=== PATIENT | male | born 1975 | race Two or more races ===

== ENCOUNTER 2022-03-17 23:51 | Emergency (ER) | payer MEDICAID ==
[~2022-03-17] VITALS: Ht 188 cm; Wt 168.3 kg
[2022-03-18 05:19] LABS: Urine Bacteria MANY /hpf (None Seen); Urine Blood 3+ /uL (Negative); Urine Mucus FEW (None Seen); Urine WBC 301 /hpf (0 - 3); Urine WBC Clumps PRESENT /hpf (None Seen)
[2022-03-18] MEDS ORDERED: NITR-87 PO (05:33)
[2022-03-18] MEDS ORDERED: PERCOT PO (05:33)
[2022-03-18 07:51] VITALS: BP 116/76
== END 2022-03-18 09:30 | disposition home or self-care (01) ==
LOC: ER 23:51
DX: N39.0 Urinary tract infection, site not specified (principal)
CPT/HCPCS: 74176; 81001

== ENCOUNTER 2025-07-08 01:51 | Emergency (ER) | payer MEDICAID ==
[~2025-07-08] VITALS: Ht 188 cm; Wt 161.0 kg
[~2025-07-08 01:51] MED LIST: NITR-87 PO; PERCOT PO
[2025-07-08] MEDS: IPRATROPIUM BROM 0.5 MG/2.5ML INH SOL NEB ONE (02:13)
[2025-07-08] MEDS: ALBUTEROL SULF 2.5 MG/0.5ML(0.5%) NEB SOLN NEB ONE (02:13)
[2025-07-08 03:34] VITALS: BP 147/81; PULSE 96; RESP 19; TEMP 98.6; O2SAT 96
--- NOTE | 2025-07-08 03:35 | ED.PDOC ---
Eye-HPI HPI Comments Pt presents with cc of flu like symptoms of cough, sneezing, generalized body pain x yesterday with wheezing x today. Denies fever, chills, nausea, vomiting or difficulty breathing reports no chest pain shortness of breath Chief Complaint: Flu like Time Seen by MD: 02:13 Primary Care Provider: None Reviewed Notes: Nurses Notes, Medications, Allergies Allergies: Coded Allergies: NO KNOWN ALLERGIES (Unverified , 03/18/22) Home Meds Active Scripts Azithromycin (Azithromycin) 250 Mg Tab, 250 MG PO DAILY MDD 500 for 5 Days, #6 TAB 0 Refills 2 TABLETS ORALLY ON DAY ONE, THEN 1 TABLET ORALLY DAILY FOR 4 DAYS Prov:AARON KIDD [employer] 07/08/25 Oxycodone W/ Acetaminophen (Percocet 5/325MG) 1 Tab Tb, 1 TAB PO BID for 7 Days, #14 TAB Prov:OSCAR BARRIOS MD 03/18/22 Nitrofurantoin Monohydrate Mac (Macrobid) 100 Mg Cap, 100 MG PO BID for 7 Days, #14 CAP Prov:OSCAR BARRIOS MD 03/18/22 Information Source: Patient Mode of Arrival: Ambulatory Past Medical History PAST MEDICAL HISTORY: Denies Surgical History: Denies all surgeries Family History Family History: Reviewed,noncontributory to illness Social History Smoker: Non-Smoker Alcohol: Denies ETOH Use Drugs: Denies Drug Use Lives In: Home Physical Exam General Appearance: No Apparent Distress, Normal HEENT: Normal ENT Inspection, Pharynx Normal, TMs Normal Neck: Full Range of Motion, Non-Tender Respiratory: Chest Non-Tender, Lungs Clear, No Accessory Muscle Use, No Respiratory Distress, Normal Breath Sounds Cardiovascular: No Edema, No JVD, No Murmur, No Gallop, Normal Peripheral Pulses, Regular Rate/Rhythm Breast Exam: Deferred Gastrointestinal: No Organomegaly, Non Tender, No Pulsatile Mass, Normal Bowel Sounds, Soft Genitalia: Deferred Pelvic: Deferred Rectal: Deferred Extremities: Normal range of motion Musculoskeletal : Apperance: Normal Neurologic: Alert, No Motor Deficits, Normal Affect, Normal Mood, No Sensory Deficits Cerebellar Function: Normal Reflexes: NOT DONE Skin: Dry, Normal Color, Warm Lymphatic: No Adenopathy Was a procedure done? Was a procedure done?: No EENT DIFF Eye: N/A Ear: Otitis Media, Pharyngitis Sore Throat: Peritonsillar Abscess, Peritonsillar Cellulitis, Pharyngitis, Streptococcal, Viral Pharyngitis, URI X-Ray, Labs, Meds, VS Vital Signs Date Time Temp Pulse Resp B/P (MAP) Pulse Ox O2 Delivery O2 Flow Rate FiO2 07/08/25 03:34 98.6 96 19 147/81 (103) 96 98.6 07/08/25 03:34 96 19 96 Room Air 07/08/25 02:13 16 98 Room Air* 0 21 07/08/25 01:53 97.8 108 18 148/83 97 97.8 Time of 1ST Reevaluation: 02:13 Reevaluation 1ST: Unchanged Time of 2ND Reevaluation: 03:35 Reevaluation 2ND: Improved Patient Education/Counseling: Diagnosis, Treatment, Need For Follow Up Family Education/Counseling: No Family Present SEPSIS Sepsis Screen Date sepsis recognized/suspect: Jul 08, 2025 Time Sepsis recognized/suspect: 154 Recent Procedure: No On Antibiotic Therapy: No Respiratory Rate >20: No Heart Rate >90: Yes Temp<36 C (96.8 F) or >38.3 C: No SBP <90 or MAP <65 mmHG: No New Acute Mental Status Change: No Is the patient on CPAP, BIPAP,: No Vital Signs Date Time Temp Pulse Resp B/P (MAP) Pulse Ox O2 Delivery O2 Flow Rate FiO2 07/08/25 03:34 98.6 96 19 147/81 (103) 96 98.6 07/08/25 03:34 96 19 96 Room Air 07/08/25 02:13 16 98 Room Air* 0 21 07/08/25 01:53 97.8 108 18 148/83 97 97.8 Departure 1 Departure Time of Disposition: 03:35 Impression: Primary Impression: URI (upper respiratory infection) Qualified Codes: J06.9 - Acute upper respiratory infection, unspecified Disposition: 01 HOME / SELF CARE / HOMELESS Condition: Stable e-Prescriptions Azithromycin (Azithromycin) 250 Mg Tab 250 MG PO DAILY MDD 500 for 5 Days, #6 TAB 0 Refills 2 TABLETS ORALLY ON DAY ONE, THEN 1 TABLET ORALLY DAILY FOR 4 DAYS Prov: AARON KIDD 07/08/25 Discharged With: Self Critical Care Note Critical Care Time?: No Stability Stability form required: No AARON KIDD Jul 08, 2025 03:35
[2025-07-08] MEDS ORDERED: AZIT-43 PO (03:41)
[2025-07-08] MEDS ORDERED: METH4PAK PO (03:41)
[2025-07-08] MEDS ORDERED: ALBUAER3 IN (03:41)
[2025-07-08] MEDS ORDERED: PROM1SOL4 PO (03:41)
== END 2025-07-08 03:44 | disposition home or self-care (01) ==
LOC: ER 01:51
DX: J06.9 Acute upper respiratory infection, unspecified (principal); Z79.899 Other long term (current) drug therapy; Z79.891 Long term (current) use of opiate analgesic
CPT/HCPCS: 94640